=== PATIENT | male | born 1960 | race Caucasian/White ===

== ENCOUNTER 2017-06-07 17:10 | Emergency (ER) | payer OTHER ==
[~2017-06-07] VITALS: Ht 185.4 cm; Wt 95.0 kg
[~2017-06-07 17:10] MED LIST: ATOR80TA PO; DICL75 PO; HYDR-3533 PO; HYDR12.56 PO; LISI-360 PO
[2017-06-07 17:26] VITALS: BP 153/86; PULSE 76; RESP 16; TEMP 97.6; O2SAT 98
[2017-06-07] MEDS ORDERED: MELO15TA20 PO (17:44)
[2017-06-07] MEDS ORDERED: ATOR80TA45 PO (17:44)
[2017-06-07] MEDS ORDERED: ASPI81TA23 PO (17:44)
[2017-06-07] MEDS ORDERED: LISI10TA3 PO (17:44)
--- NOTE | 2017-06-07 17:46 | PD ---
HPI Chief Complaint: GI Complaint Time Seen by Provider: 17:34 Travel History International Travel<30 days: No Contact w/Intl Traveler<30days: No Traveled to known affect area: No History of Present Illness HPI This patient complains of intermittent nausea and vomiting for the last 2-3 weeks. Sometimes when he vomits there is some red blood mixed in with the vomit. He vomited one time today with some blood in it. He denies epigastric or chest pain or heartburn or history of GI bleeding. No alcohol or substance abuse. No melena or rectal bleeding. He has some intermittent left low back pain but no abdominal pain. He saw his [facility] physician recently and had labs and chest x-ray done. He has an outpatient CT of abdomen and pelvis scheduled. Severity is moderate. No alleviating factors. No exacerbating factors. PFSH Past Medical History Autoimmune Disease: No Blood Disorders: No Heart Rhythm Problems: No Cancer: No Cardiac Catheterization: No Cardiovascular Problems: Yes (HTN) High Cholesterol: Yes Chest Pain: Yes Congestive Heart Failure: No Diabetes: No Diminished Hearing: No Endocrine: No Gastrointestinal Disorders: Yes Genitourinary: Yes Headaches: Yes Hypertension: Yes Kidney Stones: Yes Musculoskeletal: Yes Neurologic: Yes Psychiatric: No Reproductive: No Respiratory: Yes Immunizations Current: Yes Myocardial Infarction: No Tetanus Vaccination: > 5 Years Influenza Vaccination: No Past Surgical History Coronary Artery Bypass Graft: No Eye Surgery: Yes Genitourinary Surgery: No Pacemaker: No Social History Alcohol Use: No Tobacco Use: No Substance Use: No Allergies-Medications (Allergen,Severity, Reaction): Coded Allergies: morphine (Unverified Allergy, Severe, 06/07/17) Reported Meds & Prescriptions Reported Meds & Active Scripts Active Reported Aspirin EC (Aspirin) 81 Mg Tabdr 81 Mg PO DAILY Meloxicam 15 Mg Tab 15 Mg PO DAILY Lisinopril 10 Mg Tab 10 Mg PO DAILY Atorvastatin (Atorvastatin Calcium) 80 Mg Tab 80 Mg PO HS Review of Systems General / Constitutional: No: Fever Eyes: No: Visual changes HENT: No: Headaches Cardiovascular: No: Chest Pain or Discomfort Respiratory: No: Shortness of Breath Gastrointestinal: Positive: Nausea, Vomiting, Diarrhea, Hematemesis, No: Abdominal Pain Genitourinary: Positive: Flank Pain, No: Dysuria Musculoskeletal: Positive: Pain Skin: No Rash Neurologic: No: Weakness Psychiatric: No: Depression Endocrine: No: Polydipsia Hematologic/Lymphatic: No: Easy Bruising Physical Exam Narrative GENERAL: Well-nourished, well-developed patient in no apparent distress. SKIN: Focused skin assessment reveals no rash and nodules. Skin is Warm and dry. HEAD: Atraumatic. Normocephalic. EYES: Pupils equal and round. No scleral icterus. No injection or drainage. ENT: No nasal bleeding or discharge. Mucous membranes pink and moist. Throat clear, has bifid uvula NECK: Trachea midline. No JVD. CARDIOVASCULAR: Regular rate and rhythm. No murmur appreciated. RESPIRATORY: No accessory muscle use. Clear to auscultation. Breath sounds equal bilaterally. GASTROINTESTINAL: Abdomen soft, non-tender, nondistended. Hepatic and splenic margins not palpable. MUSCULOSKELETAL: No obvious deformities. No clubbing. No cyanosis. No edema. Some left lumbar tenderness, none in the midline NEUROLOGICAL: Awake and alert. No obvious cranial nerve deficits. Motor grossly within normal limits. Normal speech. PSYCHIATRIC: Appropriate mood and affect; insight and judgment normal. Data Data Last Documented VS Vital Signs Date Time Temp Pulse Resp B/P (MAP) Pulse Ox O2 Delivery O2 Flow Rate FiO2 06/07/17 17:26 97.6 76 16 153/86 (108) 98 Orders Orders Iv Access Insert/Monitor (06/07/17 17:42) Complete Blood Count With Diff (06/07/17 17:42) Basic Metabolic Panel (Bmp) (06/07/17 17:42) Prothrombin Time / Inr (Pt) (06/07/17 17:42) Act Partial Throm Time (Ptt) (06/07/17 17:42) Labs Laboratory Tests Test 06/07/17 17:50 White Blood Count 6.4 TH/MM3 Red Blood Count 4.25 MIL/MM3 Hemoglobin 12.0 GM/DL Hematocrit 35.4 % Mean Corpuscular Volume 83.3 FL Mean Corpuscular Hemoglobin 28.2 PG Mean Corpuscular Hemoglobin Concent 33.9 % Red Cell Distribution Width 11.6 % Platelet Count 208 TH/MM3 Mean Platelet Volume 7.9 FL Neutrophils (%) (Auto) 57.6 % Lymphocytes (%) (Auto) 31.7 % Monocytes (%) (Auto) 7.7 % Eosinophils (%) (Auto) 2.5 % Basophils (%) (Auto) 0.5 % Neutrophils # (Auto) 3.6 TH/MM3 Lymphocytes # (Auto) 2.0 TH/MM3 Monocytes # (Auto) 0.5 TH/MM3 Eosinophils # (Auto) 0.2 TH/MM3 Basophils # (Auto) 0.0 TH/MM3 CBC Comment DIFF FINAL Differential Comment Prothrombin Time 11.8 SEC Prothromb Time International Ratio 1.1 RATIO Activated Partial Thromboplast Time 27.5 SEC Blood Urea Nitrogen 19 MG/DL Creatinine 1.10 MG/DL Random Glucose 100 MG/DL Calcium Level 8.5 MG/DL Sodium Level 141 MEQ/L Potassium Level 3.7 MEQ/L Chloride Level 105 MEQ/L Carbon Dioxide Level 28.7 MEQ/L Anion Gap 7 MEQ/L Estimat Glomerular Filtration Rate 70 ML/MIN MDM Medical Decision Making Medical Screen Exam Complete: Yes Emergency Medical Condition: Yes Medical Record Reviewed: Yes Differential Diagnosis Gastric ulcer, esophagitis, gastric cancer, gastroenteritis, colitis, inflammatory bowel disease Narrative Course I have reviewed the patient's electronic medical record. Looked at all his prior blood draws. He's been mildly anemic back to 2004 with hemoglobin of 11.8 IV placed CBC shows hemoglobin of 12 metabolic profile is normal Patient's exam is normal Coagulation studies are normal Patient remains asymptomatic. We discussed the my recommendation is to ask his physician to set up a endoscopy to look for bleeding source and to try to rule out GI malignancy Diagnosis Primary Impression: Hematemesis Qualified Codes: K92.0 - Hematemesis Additional Impressions: Diarrhea Qualified Codes: R19.7 - Diarrhea, unspecified Anemia Qualified Codes: D64.9 - Anemia, unspecified Additional Instructions: Avoid aspirin and anti-inflammatories [facility] to [facility] Med/Other Pt SpecificInfo: Other Disposition: 01 DISCHARGE HOME Condition: Stable Arun Newby MD Jun 07, 2017 17:46
[2017-06-07 18:06] LABS: POTASSIUM 3.7 MEQ/L (3.5-5.1)
[2017-06-07 18:09] LABS: BICARBONATE 28.7 MEQ/L (21.0-32.0)
[2017-06-07 18:10] LABS: AUTOMATED NEUTROPHIL # 3.6 TH/MM3 (1.8-7.7); BASOPHIL % 0.5 % (0.0-2.0); EOSINOPHIL # 0.2 TH/MM3 (0-0.4); EOSINOPHIL % 2.5 % (0.0-4.0); HEMATOCRIT 35.4 % (39.0-51.0); HEMO FLAGS DIFF FINAL; LYMPH % 31.7 % (9.0-44.0); MEAN CELL VOLUME 83.3 FL (80.0-100.0); MEAN CORPUSCULAR HEMOGLOBIN 28.2 PG (27.0-34.0); MEAN CORPUSCULAR HGB CONC 33.9 % (32.0-36.0); MONO % 7.7 % (0.0-8.0); NEUT % 57.6 % (16.0-70.0); PLATELET COUNT 208 TH/MM3 (150-450); RED BLOOD COUNT 4.25 MIL/MM3 (4.50-5.90); RED CELL DISTRIBUTION WIDTH 11.6 % (11.6-17.2); WHITE BLOOD COUNT 6.4 TH/MM3 (4.0-11.0)
[2017-06-07 18:12] LABS: APTT (PATIENT) 27.5 SEC (24.3-30.1); INTERNATIONAL NORMALIZED RATIO 1.1 RATIO; PROTHROMBIN TIME - PATIENT 11.8 SEC (9.8-11.6)
[2017-06-07 18:39] VITALS: BP 133/79
== END 2017-06-07 18:47 | disposition home or self-care (01) ==
LOC: PHED 17:10
DX: K92.0 Hematemesis (principal); R19.7 Diarrhea, unspecified; D64.9 Anemia, unspecified; M54.5 Low back pain; I10 Essential (primary) hypertension
CPT/HCPCS: 80048; 85025; 85610; 85730; 99283